=== PATIENT | female | born 1995 | race Caucasian/White ===

== ENCOUNTER → 2017-04-01 | Outpatient (CLI) | payer MEDICARE ==
[~2017-04-01] MED LIST: ALBUTEROL2.5 MG/0.5 INH; AMOXICILLIN500 MG PO; ANAPROX DS550 MG PO; BACTRIM; BACTRIM DS 8001 TA1 PO; BACTRIM DS 8001 TAB PO; BENTYL10 MG PO; BIRTH CONTROL1 EAC1 PO; CIPRODEX 0.3%-7.5 M1 OT; CLARITIN10 MG PO; DELTASONE20 M1 PO; HYDROCODONE BIT1 T11 PO; IBU800 MG PO; IBUPROFEN 200200 MG PO; JUNEL FE 1/20 21 TAB PO; LOMOTIL 0.025 M1 TA1 PO; MACROBID100 M1 PO; MEDROL DOSEPAK4 MG PO; MOTRIN400 MG PO; MOTRIN600 MG PO; NAPROSYN500 MG PO; NAPROXEN SOD550 MG PO; OMNICEF300 MG PO; PHENERGAN25 M1 PO; PYRIDIATE100 MG PO; PYRIDIUM200 MG PO; TESSALON PERLE100 M1 PO; TYLENOL; ZITHROMAX250 MG PO; ZOFRAN ODT4 MG SL; ZOFRAN4 MG PO; Zofran4 MG PO
== END ==
LOC: US 16:00
DX: E04.9 Nontoxic goiter, unspecified (principal)

== ENCOUNTER 2017-12-09 19:54 | Emergency (ER) | payer MEDICARE ==
[~2017-12-09] VITALS: Ht 167.6 cm; Wt 95.3 kg
[2017-12-09 20:03] VITALS: BP 119/73
[2017-12-09] MEDS ORDERED: TESSALON PERLE100 M1 PO (21:56)
[2017-12-09] MEDS ORDERED: CLARITIN10 MG PO (21:56)
== END 2017-12-09 22:03 | disposition home or self-care (01) ==
LOC: ED 19:54
DX: J06.9 Acute upper respiratory infection, unspecified (principal); Z79.899 Other long term (current) drug therapy

== ENCOUNTER 2018-04-12 21:33 | Emergency (ER) | payer MEDICARE ==
[~2018-04-12] VITALS: Ht 167.6 cm; Wt 95.3 kg
[2018-04-12 21:33] VITALS: BP 129/83
== END 2018-04-12 21:45 | disposition home or self-care (01) ==
LOC: ED 21:33
DX: S90.32XA Contusion of left foot, initial encounter (principal); Z79.899 Other long term (current) drug therapy; W20.8XXA Other cause of strike by thrown, projected or falling object, initial encounter; Y93.89 Activity, other specified; Y92.89 Other specified places as the place of occurrence of the external cause; Y99.8 Other external cause status

== ENCOUNTER → 2018-04-19 | Outpatient (CLI) | payer MEDICARE | END | disposition home or self-care (01) | LOC: ORTHO 01:18 | DX: M25.572 Pain in left ankle and joints of left foot (principal) ==

== ENCOUNTER → 2018-05-24 | Outpatient (CLI) | payer MEDICARE | END | disposition home or self-care (01) | LOC: ORTHO 03:29 | DX: M25.572 Pain in left ankle and joints of left foot (principal) ==

== ENCOUNTER 2018-12-17 10:10 | Emergency (ER) | payer MEDICARE ==
[2018-12-17 10:13] VITALS: BP 135/94
[2018-12-17 10:30] LABS: BASO # 0.1 10*3/uL (0.0-0.1); BASO % 0.6 % (0.0-1.0); EOS # 0.1 10*3/uL (0.0-0.4); EOS % 1.3 % (1.0-4.0); HEMATOCRIT 41.5 % (37.0-47.0); HEMOGLOBIN 14.1 g/dl (12.0-16.0); LYMPH # 3.2 10*3/uL (1.3-4.4); LYMPH % 38.8 % (27.0-41.0); MEAN CELL VOLUME 87.6 fl (81.0-99.0); MEAN CORPUSCULAR HGB 29.7 pg (27.0-31.0); MEAN PLATELET VOLUME 10.5 fl (9.6-12.3); MONO # 0.5 10*3/uL (0.1-1.0); MONO % 5.6 % (3.0-9.0); NEUT # 4.4 10*3/uL (2.3-7.9); NEUT % 53.5 % (47.0-73.0); PLATELET COUNT AUTOMATED 389 10*3/uL (130-400); RED BLOOD COUNT 4.74 10*6/uL (4.10-5.10); RED CELL DISTRI WIDTH 12.4 % (0-14.5); WHITE BLOOD COUNT 8.2 10*3/uL (4.8-10.8)
[2018-12-17 10:58] LABS: BILIRUBIN NEGATIVE (NEGATIVE); BLOOD 3+ (NEGATIVE); CLARITY SL CLOUDY (CLEAR); COLOR YELLOW (YELLOW); GLUCOSE NEGATIVE (NEGATIVE); KETONE NEGATIVE (NEGATIVE); LEUKO ESTERASE NEGATIVE (NEGATIVE); NITRITE NEGATIVE (NEGATIVE); PH 5.5 (5.0-9.0); SPECIFIC GRAVITY >= 1.030 (1.005-1.030); UROBILINOGEN 0.2 E.U./dl (0.2-1.0)
[2018-12-17 11:08] LABS: ALBUMIN 3.3 gm/dl (3.1-4.5); ALKALINE PHOSPHATASE 44 U/L (45-117); BUN 9 mg/dl (7-24); CHLORIDE 107 mmol/L (98-107); CREATININE 0.63 mg/dL (0.55-1.02); LIPASE 95 U/L (73-393); SGOT/AST 11 IU/L (3-35); SGPT/ALT 27 U/L (12-78); SODIUM 139 mmol/L (136-145); TOTAL PROTEIN 7.2 gm/dL (6.4-8.2)
[2018-12-17 11:09] LABS: BACTERIA 1+; RBC 21-30 rbc/hpf (0-2)
[2018-12-17] MEDS ORDERED: ZOFRAN4 MG PO (12:35)
[2018-12-17] MEDS ORDERED: DICYCLOMINE HCL10 MG PO (12:35)
[2019-02-07] MEDS ORDERED: MEDROL DOSEPAK4 MG PO (13:00)
[2019-02-07] MEDS ORDERED: AMOXICILLIN500 M2 PO (13:00)
[2019-02-24] MEDS ORDERED: KETOROLAC10 MG PO (02:21)
[2019-02-24] MEDS ORDERED: FLOMAX0.4 MG PO (02:21)
== END 2018-12-17 12:39 | disposition home or self-care (01) ==
LOC: ED 10:10
PROVIDERS: Nurse Practitioner Family
DX: K52.9 Noninfective gastroenteritis and colitis, unspecified (principal); R03.0 Elevated blood-pressure reading, without diagnosis of hypertension; Z79.899 Other long term (current) drug therapy

== ENCOUNTER 2018-12-24 17:26 | Inpatient (IN) | payer MEDICARE ==
[~2018-12-24] VITALS: Ht 167.6 cm; Wt 102.2 kg
--- NOTE | ~2018-12-24 | O ---
[place], [place] OPERATIVE NOTE NAME: [facility] [id number] UNIT #: [id number] ROOM: 518 DOCTOR: MARRY CALI MD BIRTHDATE: [birth year] DOS: 12/25/2018 GASTROENDOSCOPIC REPORT HISTORY OF PRESENT ILLNESS: The patient is a 23-year-old who has presented with multiple visits to Emergency Room for abdominal pain and epigastric pain. PROCEDURE: Today's procedure part of investigation is panendoscopy plus biopsy. PREMEDICATION: Propofol. SCOPE: Olympus forward-viewing gastroscope Q10 video. REPORT: After putting the patient in left lateral position and application of lubricant to the scope, the scope was introduced. Thereafter, under direct visualization, advanced through the length of esophagus without difficulty. Gastric pouch was entered, 1 cm hiatal hernia was noticed. Bile reflux was appreciated. Mild gastritis seen. Antral biopsy obtained. Duodenal bulb, second and third part within normal limit. Air was suctioned out. The patient was extubated, tolerated the procedure well. IMPRESSION: Small hiatal hernia, bile reflux gastritis, status post antral biopsy. PLAN AND DISCUSSION: Protonix 40 mg daily, avoiding fatty foods, avoiding spicy food. Elevation of the head of the bed 6 inches all time, control of diet. Gaviscon as antacid of choice 1 at bedtime p.r.n. and clinical reassessment. MARRY CALI MD CM:OPRECORD:OPERATIVE NOTE [id number] MARRY CALI MD 12/25/18 1720 interface
--- NOTE | ~2018-12-24 | CON ---
[place], [place] REPORT OF CONSULTATION [id number] #: [id number] ROOM: 518 DOCTOR: MARRY CALI MD BIRTHDATE: [birth year] DOS: 12/25/2018 GASTROENDOSCOPIC REPORT HISTORY OF PRESENT ILLNESS: A 23-year-old patient who has presented with chief complaint of ambiguous abdominal pain. She has had multiple visits to Emergency Room. The latest sonogram was steatotic liver, otherwise unremarkable abdomen and gallbladder. Her urine was studied, no growth was noticed. CBC; white blood cell 11, H and H of 13 and 41. Comprehensive metabolic panel, electrolyte balanced, GFR greater than 60. Liver function tests normal. Lipase within normal limits. CT scan of the abdomen and pelvis was done, no acute process. Mild hepatic steatosis was noticed. Gallbladder is present without gallstones. No acute pathology reported. Otherwise, urinalysis was unremarkable. CBC, white blood cell dropped to 7.4. Comprehensive metabolic panel within normal limits. PAST MEDICAL HISTORY: Associated with obesity for the age and otherwise, hepatic steatosis. PAST SURGICAL HISTORY: Tonsillectomy, adenoidectomy, tympanostomy. SOCIAL HISTORY: Nonsmoker, social alcohol consumer. FAMILY HISTORY: Noncontributory. ALLERGIES: To known medication. MEDICATIONS: Medication list reviewed, has been including Zofran, dicyclomine and control medications. REVIEW OF SYSTEMS: HEENT: Denies double vision, blurred vision. RESPIRATORY: Denies acute shortness of breath. CARDIOVASCULAR: Denies acute chest pain. DIGESTIVE SYSTEM: No hematemesis, no hematochezia, nausea; however, cross abdominal pain expression. PHYSICAL EXAMINATION: GENERAL: Nondistressed patient, emotional, crying. VITAL SIGNS: Stable. HEENT: Head is normocephalic, nontraumatic. Mouth and buccal mucosa benign. NECK: Supple, no thyromegaly, no cervical lymphadenopathy. CHEST: Symmetric anatomy, equal expansion. No wheeze, no rhonchi. HEART: Normal sinus rhythm, no gallop, no murmur. ABDOMEN: Obese, soft. No hepato-organomegaly. Bowel sounds present. No pulsatile mass was noticed. EXTREMITIES: No cyanosis. No pedal edema. NEUROLOGIC: Alert, oriented to time, place, person. IMPRESSION: Nonspecific abdominal pain and epigastric pain. [place], [place] REPORT OF CONSULTATION NAME: JOHNATHON HARE UNIT #: [id number] ROOM: 518 DOCTOR: MARRY CALI MD BIRTHDATE: [birth year] PLAN AND DISCUSSION: Endoscopic assessment and clinical reevaluation. OTHER ADJUNCTIVE DIAGNOSES: Anxiety, steatotic liver. MARRY CALI MD CM:CONSTR:REPORT OF CONSULTATION 1615 12/26/18 0219 interface
[~2018-12-24 17:26] MED LIST changes: +DICYCLOMINE HCL10 MG PO
[2018-12-24 17:29] VITALS: BP 131/79
[2018-12-24 18:24] LABS: BASO # 0.1 10*3/uL (0.0-0.1); BASO % 0.6 % (0.0-1.0); EOS # 0.2 10*3/uL (0.0-0.4); EOS % 1.9 % (1.0-4.0); HEMATOCRIT 41.3 % (37.0-47.0); HEMOGLOBIN 13.6 g/dl (12.0-16.0); LYMPH # 4.5 10*3/uL (1.3-4.4); LYMPH % 40.2 % (27.0-41.0); MEAN CELL VOLUME 88.1 fl (81.0-99.0); MEAN CORPUSCULAR HGB CONC 32.9 g/dl (33.0-37.0); MEAN PLATELET VOLUME 9.5 fl (9.6-12.3); MONO # 0.7 10*3/uL (0.1-1.0); MONO % 5.9 % (3.0-9.0); NEUT # 5.7 10*3/uL (2.3-7.9); NEUT % 51.1 % (47.0-73.0); PLATELET COUNT AUTOMATED 370 10*3/uL (130-400); RED BLOOD COUNT 4.69 10*6/uL (4.10-5.10); RED CELL DISTRI WIDTH 12.2 % (0-14.5); WHITE BLOOD COUNT 11.1 10*3/uL (4.8-10.8)
[2018-12-24 18:42] LABS: ALBUMIN 3.8 gm/dl (3.1-4.5); ALKALINE PHOSPHATASE 53 U/L (45-117); BUN 10 mg/dl (7-24); CHLORIDE 109 mmol/L (98-107); CREATININE 0.71 mg/dL (0.55-1.02); LIPASE 119 U/L (73-393); POTASSIUM 3.9 mmol/L (3.5-5.1); SGOT/AST 13 IU/L (3-35); SGPT/ALT 25 U/L (12-78); SODIUM 141 mmol/L (136-145); TOTAL PROTEIN 8.1 gm/dL (6.4-8.2)
[2018-12-24 19:26] LABS: BILIRUBIN NEGATIVE (NEGATIVE); BLOOD NEGATIVE (NEGATIVE); CLARITY CLEAR (CLEAR); COLOR YELLOW (YELLOW); GLUCOSE NEGATIVE (NEGATIVE); KETONE NEGATIVE (NEGATIVE); LEUKO ESTERASE NEGATIVE (NEGATIVE); NITRITE NEGATIVE (NEGATIVE); PH 5.5 (5.0-9.0); SPECIFIC GRAVITY 1.025 (1.005-1.030); UROBILINOGEN 0.2 E.U./dl (0.2-1.0)
[2018-12-24 19:35] LABS: BACTERIA 1+; RBC 0-2 rbc/hpf (0-2)
[2018-12-24 20:45] VITALS: BP 132/82
--- NOTE | 2018-12-24 20:45 | NUR ---
A 23, admitted to 5E, under the services of LYDIA Wray DO with a diagnosis of UNDIFFERENTIAL ABDOMINAL PAIN, INTRACTABLE VOMITING W/ NAUSEA. Chief complaint is ABDOMINAL PAIN. Patient arrived via stretcher from ER. Monitor applied. Initial assessment completed. Vital signs taken and recorded. LYDIA WRAY DO notified of admission to the unit. Orders received. See assessment for past medical history, medications and allergies. Patient and/or family oriented to unit. visitation policy reviewed. Clothing/patient valuable form completed. ZAMZAM BATISTA A
--- NOTE | 2018-12-24 21:13 | NUR ---
CALL PLACED TO NURSING RIPPLER IN REGARDS TO PATIENT FAMILY MEMBER REQUESTING TO SPEND THE NIGHT, PERMISSION GRANTED AT THIS TIME.
--- NOTE | 2018-12-24 21:20 | NUR ---
SPOKE WITH DR. JONES REGARDING PATIENT TAKING CONTROL WHILE IN THE HOSPITAL, PERMISSION GRANTED AT THIS TIME.
--- NOTE | 2018-12-24 21:26 | NUR ---
SPOKE WITH DR. CALI REGARDING CONSULT, PATIENT TO REMAIN NPO WILL SEE IN AM.
--- NOTE | 2018-12-24 21:28 | NUR ---
DR. JONES AWARE OF CONSULT FOR DR. CALI AND NO NEW ORDERS AT THIS TIME.
--- NOTE | 2018-12-24 22:33 | NUR ---
BIRTHCONTROL MEDICATION RETIMED FOR TONIGHT FAMILY REQUEST, DR. JONES INFORMED WELL. MEDICATION GIVEN WITH SIP OF WATER.
[2018-12-25] VITALS (7 sets, daily range): BP systolic 101–132; BP diastolic 56–86
--- NOTE | 2018-12-25 06:00 | NUR ---
RESTING IN BED WITH EYES CLOSED. IV FLUIDS CONTINUE TO INFUSE WITHOUT DIFFICULTY; SITE ASYMPTOMATIC. CALL LIGHT WITHIN REACH. FAMILY MEMBER IN ROOM.
[2018-12-25 06:54] LABS: BASO # 0.1 10*3/uL (0.0-0.1); BASO % 0.7 % (0.0-1.0); EOS # 0.2 10*3/uL (0.0-0.4); EOS % 2.4 % (1.0-4.0); HEMATOCRIT 36.6 % (37.0-47.0); HEMOGLOBIN 11.6 g/dl (12.0-16.0); LYMPH # 3.5 10*3/uL (1.3-4.4); LYMPH % 46.7 % (27.0-41.0); MEAN CELL VOLUME 88.4 fl (81.0-99.0); MEAN CORPUSCULAR HGB CONC 31.7 g/dl (33.0-37.0); MEAN PLATELET VOLUME 9.7 fl (9.6-12.3); MONO # 0.5 10*3/uL (0.1-1.0); MONO % 6.9 % (3.0-9.0); NEUT # 3.2 10*3/uL (2.3-7.9); NEUT % 43.2 % (47.0-73.0); PLATELET COUNT AUTOMATED 299 10*3/uL (130-400); RED BLOOD COUNT 4.14 10*6/uL (4.10-5.10); RED CELL DISTRI WIDTH 12.3 % (0-14.5); WHITE BLOOD COUNT 7.4 10*3/uL (4.8-10.8)
[2018-12-25 07:10] LABS: CHLORIDE 112 mmol/L (98-107); POTASSIUM 3.8 mmol/L (3.5-5.1); SODIUM 143 mmol/L (136-145)
--- NOTE | 2018-12-25 07:15 | NUR ---
PT ASLEEP IN BED WITH MOTHER AT THE BEDSIDE. REPORT RECEIEVED FROM BIANKA CHOUDHURY. PT BED LOW, CALL LIGHT WITHIN REACH. WILL CONTINUE TO MONITOR.
[2018-12-25 07:20] LABS: ALKALINE PHOSPHATASE 42 U/L (45-117); BUN 7 mg/dl (7-24); CHOLESTEROL 118 mg/dL (<200); CREATININE 0.65 mg/dL (0.55-1.02); FREE T4 1.12 ng/dl (0.76-1.46); HDL CHOLESTEROL 37 mg/dl (40-60); LDL CHOLESTEROL 70 mg/dL (9-159); PHOSPHOROUS 3.1 mg/dL (2.5-4.9); SGOT/AST 14 IU/L (3-35); SGPT/ALT 20 U/L (12-78); TOTAL PROTEIN 6.4 gm/dL (6.4-8.2); TRIGLYCERIDES 55 mg/dl (<150); VLDL CHOLESTEROL 11 mg/dL (6-40)
[2018-12-25 07:24] LABS: ACT PARTIAL THROMBO TIME 20.9 SECONDS (20.8-31.5); INTERNATIONAL NORM RATIO 0.9 (2.0-3.5)
[2018-12-25 07:58] LABS: VITAMIN D, 25-HYDROXY 16.9 ng/mL (30-100)
--- NOTE | 2018-12-25 08:30 | NUR ---
PT OFF THE FLOOR FOR US.
--- NOTE | 2018-12-25 08:50 | NUR ---
PT RETURNED FROM US. STATES SHE IS HAVING MILD PAIN BUT DENIES THE NEED FOR MEDICATION. WILL CONTINUE TO MONITOR.
--- NOTE | 2018-12-25 10:17 | NUR ---
24 HR CHART CHECK COMPLETE
--- NOTE | 2018-12-25 17:34 | NUR ---
SPOKE TO DR CALI REGARDING CONTINUATION OF PTS DIET. ORDER FOR GERD DIET, PO PROTONIX AND GAVISCON RECEIVED.
--- NOTE | 2018-12-25 19:10 | NUR ---
BEDSIDE REPORT OBTAINED FROM ERICH-BIANKA. PATIENT IS AWAKE AND ALERT, VOICED NO COMPLAINTS AT THIS TIME. NO DISTRESS NOTED, RESP ARE ERND ON ROOM AIR. BED IS LOCKED IN LOWEST POSITION, CALL LIGHT LEFT WITHIN REACH.
--- NOTE | 2018-12-25 20:42 | NUR ---
PATIENT MEDICATED WITH MORPHINE FOR C/O ABDOMINAL PAIN 06/08. WILL MONITOR.
--- NOTE | 2018-12-25 21:42 | NUR ---
MORPHINE EFFECTIVE FOR ABDOMINAL PAIN.
[2018-12-26] VITALS: BP 97/50
--- NOTE | 2018-12-26 | NUR ---
SLEEPING. CALL LIGHT WITHIN REACH.
[2018-12-26 08:00] VITALS: BP 110/69
--- NOTE | 2018-12-26 08:43 | NUR ---
PATIENT SITTING UP IN BED. RESPIRATIONS EASY, REGULAR. DENIES ANY ABD PAIN/DISCOMFORT AT THIS TIME. WILL CONTINUE TO MONITOR. MOTHER AT BEDSIDE.
[2018-12-26 12:00] VITALS: BP 111/69
[2018-12-26 16:00] VITALS: BP 123/78
--- NOTE | 2018-12-26 16:00 | NUR ---
Patient resting quietly with no c/o discomfort. Respirations easy and regular. Vital signs stable. No overt distress. CASSIDY WYMAN
--- NOTE | 2018-12-26 19:30 | NUR ---
BEDSIDE REPORT GIVEN BY CASSIDY CARLTON. PATIENT AWAKE AND ALERT VOICED NO C/O PAIN OR DISCOMFORT AT THIS TIME. CALL LIGHT WITHIN REACH.
[2018-12-26 20:00] VITALS: BP 154/89
--- NOTE | 2018-12-26 21:30 | NUR ---
PATIENT MEDICATED WITH TYLENOL FOR C/O SORENESS 03/09 TO ABDOMINAL REGION. WILL MONITOR.
--- NOTE | 2018-12-26 22:30 | NUR ---
TYLENOL EFFECTIVE FOR ABDOMINAL SORENESS.
[2018-12-27] VITALS: BP 124/76
--- NOTE | 2018-12-27 02:00 | NUR ---
SLEEPING. CALL LIGHT WITHI NREACH.
--- NOTE | 2018-12-27 06:54 | NUR ---
MADE AWARE OF PATIENT CRITCIAL HIGH INR LEVEL OF 4.8. INFORMED THAT MEDS FROM HOME HAVE NOT BEEN BEEN CONT/HELD BY DOCTOR. STATED OK.
--- NOTE | 2018-12-27 11:26 | NUR ---
Side Panel Hanger in to talk to patient. Patient states lives at HOME with MOTHER. There are NO steps in the home. Physician: JAYANT GARAY Pharmacy: [facility] services: NONE Patient's level of ADLs: INDEPENDENT Patient has working utilities: YES DME: NONE Follow-up physician's appointment after d/c: WILL BE MADE BY HOSPITALIST NURSE DIRECTOR ON DISCHARGE Does patient want to access PORTAL?: NO Discharge plan PT STATES SHE LIVES AT HOME WITH HER MOTHER AND IS INDEPENDENT IN CARE. PT CAN BE DISCHARGED TO HOME WHEN MEDICALLY STABLE. MOTHER WILL TAKE PT HOME. WILL CONTINUE TO FOLLOW.. RACHNA SALAZAR
[2018-12-27] MEDS ORDERED: VITAMIN D5000 UNI1 PO (13:00)
[2018-12-27] MEDS ORDERED: ACID GONE TABL1 EACH PO (13:00)
[2018-12-27] MEDS ORDERED: B12,B-12,B 12500 MC1 PO (13:00)
--- NOTE | 2018-12-27 14:54 | NUR ---
PATIENTS DISCHARGE IS COMPLETE. PATIENTS IV WAS DISCONTINUED AND A FLU SHOT WAS GIVEN ON DISCHARGE. PATIENT LEFT FLOOR ACCOMPANIED BY MOTHER AND REFUSED WHEELCHAIR.
[2019-02-07] MEDS ORDERED: MEDROL DOSEPAK4 MG PO (13:00)
[2019-02-07] MEDS ORDERED: AMOXICILLIN500 M2 PO (13:00)
== END 2018-12-27 14:55 | disposition home or self-care (01) | DRG 392 ==
LOC: ED 17:26 → 5E 20:20 → EDHOLD 20:20 → 5E 21:07
PROVIDERS: Family Medicine; Nurse Practitioner Family; ADMIT Emergency Medicine
PROC: 0DB68ZX Excision of Stomach, Via Natural or Artificial Opening Endoscopic, Diagnostic (ICD-10-PCS; principal; 2018-12-25)
DX: K29.60 Other gastritis without bleeding (principal); K44.9 Diaphragmatic hernia without obstruction or gangrene; E66.9 Obesity, unspecified; E87.8 Other disorders of electrolyte and fluid balance, not elsewhere classified; K76.0 Fatty (change of) liver, not elsewhere classified; F41.9 Anxiety disorder, unspecified; Z82.49 Family history of ischemic heart disease and other diseases of the circulatory system; Z83.3 Family history of diabetes mellitus; Z80.8 Family history of malignant neoplasm of other organs or systems; Z68.33 Body mass index [BMI] 33.0-33.9, adult

== ENCOUNTER 2020-04-20 10:36 | Emergency (ER) | payer MEDICARE ==
[~2020-04-20] VITALS: Ht 165.1 cm; Wt 83.9 kg
[~2020-04-20 10:36] MED LIST changes: +ACID GONE TABL1 EACH PO; +AMOXICILLIN500 M2 PO; +B12,B-12,B 12500 MC1 PO; +FLOMAX0.4 MG PO; +KETOROLAC10 MG PO; +VITAMIN D5000 UNI1 PO
[2020-04-20 13:33] VITALS: BP 110/74
[2020-04-20] MEDS ORDERED: NAPROSYN500 MG PO (14:28)
[2020-04-20] MEDS ORDERED: TYLENOL325 M1 PO (14:28)
== END 2020-04-20 14:46 | disposition home or self-care (01) ==
LOC: ED 10:36
DX: S39.92XA Unspecified injury of lower back, initial encounter (principal); Z79.899 Other long term (current) drug therapy; Z79.2 Long term (current) use of antibiotics; W01.0XXA Fall on same level from slipping, tripping and stumbling without subsequent striking against object, initial encounter; Y93.89 Activity, other specified; Y92.89 Other specified places as the place of occurrence of the external cause; Y99.8 Other external cause status

== ENCOUNTER 2020-10-31 13:57 | Emergency (ER) | payer MEDICARE ==
[~2020-10-31] VITALS: Wt 97.5 kg
[~2020-10-31 13:57] MED LIST changes: +TYLENOL325 M1 PO
[2020-10-31 14:03] VITALS: BP 145/107
[2020-10-31] MEDS ORDERED: NAPROSYN500 MG PO (15:42)
== END 2020-10-31 16:30 | disposition home or self-care (01) ==
LOC: ED 13:57
DX: R09.1 Pleurisy (principal); Z79.899 Other long term (current) drug therapy

== ENCOUNTER 2021-03-21 17:03 | Emergency (ER) | payer MEDICARE ==
[~2021-03-21] VITALS: Ht 167.6 cm; Wt 95.3 kg
[2021-03-21 17:10] VITALS: BP 134/94
== END 2021-03-21 20:31 | disposition home or self-care (01) ==
LOC: ED 17:03
DX: S06.0X1A Concussion with loss of consciousness of 30 minutes or less, initial encounter (principal); S16.1XXA Strain of muscle, fascia and tendon at neck level, initial encounter; M79.632 Pain in left forearm; Z79.899 Other long term (current) drug therapy; Y04.0XXA Assault by unarmed brawl or fight, initial encounter; Y93.89 Activity, other specified; Y92.89 Other specified places as the place of occurrence of the external cause; Y99.9 Unspecified external cause status

== ENCOUNTER → 2021-05-10 | Outpatient (CLI) | payer OTHER | END | disposition home or self-care (01) | LOC: MRI 11:00 | PROVIDERS: ATTEND Nurse Practitioner Family | DX: G44.311 Acute post-traumatic headache, intractable (principal); H53.8 Other visual disturbances; S06.0X1D Concussion with loss of consciousness of 30 minutes or less, subsequent encounter; X58.XXXD Exposure to other specified factors, subsequent encounter ==

== ENCOUNTER → 2021-11-19 | Outpatient (CLI) | payer MEDICARE | END | disposition home or self-care (01) | LOC: US 12:40 | PROVIDERS: ATTEND Nurse Practitioner Family | DX: E04.9 Nontoxic goiter, unspecified (principal); N92.6 Irregular menstruation, unspecified; J45.40 Moderate persistent asthma, uncomplicated; G43.909 Migraine, unspecified, not intractable, without status migrainosus ==

== ENCOUNTER → 2022-04-16 | Day surgery (SDC) | payer MEDICARE ==
[~2022-04-16] VITALS: Ht 167.6 cm; Wt 95.3 kg
[2022-04-16 06:30] VITALS: BP 145/89
[2022-04-16 08:41] VITALS: BP 125/72
[2022-04-16 08:56] VITALS: BP 108/57
[2022-04-16 10:16] VITALS: BP 107/57
== END | disposition home or self-care (01) ==
LOC: SDC 04-11 10:15
PROVIDERS: ATTEND Specialist
DX: H68.023 Chronic Eustachian salpingitis, bilateral (principal); G43.909 Migraine, unspecified, not intractable, without status migrainosus; F41.9 Anxiety disorder, unspecified; F32.9 Major depressive disorder, single episode, unspecified; J45.909 Unspecified asthma, uncomplicated; Z79.899 Other long term (current) drug therapy

== ENCOUNTER → 2023-01-21 | Outpatient (CLI) | payer OTHER | END | disposition home or self-care (01) | LOC: US 07:00 | PROVIDERS: ATTEND Nurse Practitioner Family | DX: E04.9 Nontoxic goiter, unspecified (principal) ==

== ENCOUNTER → 2023-05-13 | Outpatient (CLI) | payer OTHER ==
[2023-05-13 11:18] LABS: BASO # 0.1 10*3/uL (0.0-0.1); BASO % 0.6 % (0.0-1.0); EOS # 0.2 10*3/uL (0.0-0.4); EOS % 1.8 % (1.0-4.0); LYMPH # 3.1 10*3/uL (1.3-4.4); LYMPH % 35.8 % (27.0-41.0); MEAN CELL VOLUME 89.4 fl (81.0-99.0); MEAN CORPUSCULAR HGB 28.9 pg (27.0-31.0); MEAN CORPUSCULAR HGB CONC 32.3 g/dl (33.0-37.0); MEAN PLATELET VOLUME 9.3 fl (9.6-12.3); MONO # 0.5 10*3/uL (0.1-1.0); MONO % 5.3 % (3.0-9.0); NEUT # 4.9 10*3/uL (2.3-7.9); NEUT % 56.2 % (47.0-73.0); PLATELET COUNT AUTOMATED 350 10*3/uL (130-400); RED BLOOD COUNT 4.92 10*6/uL (4.10-5.10); RED CELL DISTRI WIDTH 12.2 % (0-14.5); WHITE BLOOD COUNT 8.7 10*3/uL (4.8-10.8)
[2023-05-13 11:49] LABS: ALKALINE PHOSPHATASE 72 U/L (46-116); BUN 9 mg/dl (9-23); CHLORIDE 105 mmol/L (98-107); CHOLESTEROL 157 mg/dL (<200); LDL CHOLESTEROL 104 mg/dL (9-159); POTASSIUM 4.2 mmol/L (3.4-5.1); SGPT/ALT 45 U/L (10-49); TRIGLYCERIDES 64 mg/dl (<150)
== END | disposition home or self-care (01) ==
LOC: LAB 10:44
PROVIDERS: ATTEND Nurse Practitioner Family
DX: H90.5 Unspecified sensorineural hearing loss (principal); E66.9 Obesity, unspecified; E16.1 Other hypoglycemia

== ENCOUNTER → 2025-01-18 | Outpatient (CLI) | payer OTHER ==
[2025-01-18 16:30] LABS: BASO # 0.1 10*3/uL (0.0-0.1); BASO % 0.7 % (0.0-1.0); EOS # 0.1 10*3/uL (0.0-0.4); EOS % 1.5 % (1.0-4.0); HEMATOCRIT 45.3 % (37.0-47.0); MEAN CELL VOLUME 90.1 fl (81.0-99.0); MEAN CORPUSCULAR HGB CONC 32.2 g/dl (33.0-37.0); MEAN PLATELET VOLUME 10.5 fl (9.6-12.3); MONO # 0.3 10*3/uL (0.1-1.0); MONO % 3.7 % (3.0-9.0); NEUT # 4.5 10*3/uL (2.3-7.9); NEUT % 53.1 % (47.0-73.0); PLATELET COUNT AUTOMATED 369 10*3/uL (130-400); RED BLOOD COUNT 5.03 10*6/uL (4.10-5.10); RED CELL DISTRI WIDTH 12.2 % (0-14.5); WHITE BLOOD COUNT 8.6 10*3/uL (4.8-10.8)
[2025-01-18 16:43] LABS: ALKALINE PHOSPHATASE 72 U/L (46-116); BUN 8 mg/dl (9-23); CHLORIDE 106 mmol/L (98-107); CHOLESTEROL 167 mg/dL (<200); LDL CHOLESTEROL 106 mg/dL (9-159); SGPT/ALT 43 U/L (5-49); TOTAL PROTEIN 7.7 gm/dL (6.0-8.0); TRIGLYCERIDES 88 mg/dl (<150)
== END | disposition home or self-care (01) ==
LOC: LAB 14:16
PROVIDERS: ATTEND Nurse Practitioner Family
DX: Z13.220 Encounter for screening for lipoid disorders (principal); Z76.89 Persons encountering health services in other specified circumstances; J45.40 Moderate persistent asthma, uncomplicated; H90.5 Unspecified sensorineural hearing loss; F32.9 Major depressive disorder, single episode, unspecified; Z13.29 Encounter for screening for other suspected endocrine disorder; Z79.899 Other long term (current) drug therapy

== ENCOUNTER → 2025-09-05 | Outpatient (CLI) | payer OTHER ==
[2025-09-05 11:33] LABS: BASO # 0.1 10*3/uL (0.0-0.1); BASO % 0.5 % (0.0-1.0); EOS # 0.1 10*3/uL (0.0-0.4); EOS % 1.2 % (1.0-4.0); MEAN CELL VOLUME 90.0 fl (81.0-99.0); MEAN CORPUSCULAR HGB 29.3 pg (27.0-31.0); MEAN PLATELET VOLUME 10.1 fl (9.6-12.3); MONO # 0.5 10*3/uL (0.1-1.0); MONO % 4.9 % (3.0-9.0); NEUT # 5.1 10*3/uL (2.3-7.9); NEUT % 52.6 % (47.0-73.0); NUCLEATED RED BLOOD CELL 0.0 % (0.0-0.0); NUCLEATED RED BLOOD CELL 0.0 10*3/uL (0.0-0.0); PLATELET COUNT AUTOMATED 345 10*3/uL (130-400); RED CELL DISTRI WIDTH 12.0 % (0-14.5)
[2025-09-05 12:07] LABS: BUN 11 mg/dl (9-23); LDL CHOLESTEROL 104 mg/dL (9-159); SGPT/ALT 39 U/L (5-49)
== END | disposition home or self-care (01) ==
LOC: ZRHCWE 09:06
PROVIDERS: ATTEND Nurse Practitioner Family
DX: R05.9 Cough, unspecified (principal); J45.40 Moderate persistent asthma, uncomplicated; H90.5 Unspecified sensorineural hearing loss; F32.9 Major depressive disorder, single episode, unspecified; E88.810 Metabolic syndrome; Z00.00 Encounter for general adult medical examination without abnormal findings; E78.5 Hyperlipidemia, unspecified